=== PATIENT | female | born 1980 | race Caucasian/White ===

== ENCOUNTER 2018-08-06 15:33 | Outpatient (CLI) | payer OTHER ==
--- NOTE | 2018-08-06 16:20 | ULT ---
THYROID ULTRASOUND: Indication: Thyroid nodule. FINDINGS: There is a 2.2 x 2.9 x 1.8 cm predominately cystic nodule seen centered within the right mid thyroid lobe with no associated calcification. The lesion is wider than tall and is well circumscribed. Ther e are some thin internal sepatations within the lesion. The right thyroid gland measures 4.7 x 2.4 x 2.4. Left thyroid gland measures 4.2 x 1.2 x 1.2 cm. The thyroid isthmus measures 0.3 cm. IMPRESSION: Large cystic lesion involving the mid right thyroid gland, consistent with a TIRADS 1 lesion. No foll ow up is recommended. POS: [facility]
== END 2018-08-06 15:34 | disposition home or self-care (01) ==
LOC: BICULT 15:33
PROVIDERS: ATTEND Obstetrics & Gynecology Reproductive Endocrinology
DX: E04.1 Nontoxic single thyroid nodule (principal)
CPT/HCPCS: 76536